=== PATIENT | male | born 1985 | race Caucasian/White ===

== ENCOUNTER → 2021-07-26 | Day surgery (SDC) | payer MEDICAID ==
[~2021-07-26] MED LIST: CEPHALEXIN500 M1 PO; ROXICODONE5 MG PO
== END | disposition home or self-care (01) ==
LOC: OR 11:06
DX: S68.117A Complete traumatic metacarpophalangeal amputation of left little finger, initial encounter (principal); F17.210 Nicotine dependence, cigarettes, uncomplicated; Z79.899 Other long term (current) drug therapy; Z20.822 Contact with and (suspected) exposure to COVID-19; W28.XXXA Contact with powered lawn mower, initial encounter
CPT/HCPCS: J0690; J1100; J1885; J2001; J2250; J2405; J2704; J3010; J7030; J7120; U0002